=== PATIENT | female | born 1960 | race African-American/Black ===

== ENCOUNTER 2019-05-19 13:20 | Outpatient (CLI) | payer OTHER, SELFPAY ==
--- NOTE | ~2019-05-19 | US_ITS ---
EXAMINATION: US abdomen complete EXAM DATE: 05/19/2019 14:01 INDICATION: Epigastric pain. TECHNIQUE: Multiple grayscale and Doppler images of the complete abdomen were obtained (by a technolo gist who performed the scan) and subsequently reviewed. There is no prior study for comparison. FINDINGS: The abdominal aorta is normal in caliber. Visualized portion IVC is patent. The pancreatic head a nd body are normal in appearance. The pancreatic tail is not visualized. The liver has normal echogenicity and contour. There are no focal liver lesions identified. There is no evidence of intrahepatic biliary duct dilation. Portal venous flow was seen in the hepatopedal , normal direction and has normal Doppler waveform. Common bile duct measures 3 mm, which is normal. The gallbladder wall is normal in thickness, with ex pected amount of distention. No sonographic evidence of pericholecystic fluid. There is no cholelit hiases. Technologist performing exam reports patient did not demonstrate sonographic Romero's sign. Please note that this sign is less reliable in patients who have received pain medication. Right kidney: There is normal contour and echogenicity. It measures 9.0 x 5.8 x 4.7 centimeters. T here are no focal renal lesions identified. There is no hydronephrosis. Left kidney: There is normal contour and echogenicity. It measures 9.0 x 5.3 x 4.0 centimeters. Th ere are no focal renal lesions identified. There is no hydronephrosis. The spleen measures 8 centimeters and is morphologically normal. IMPRESSION: 1. Unremarkable complete abdominal ultrasound exam. Reviewed, dictated and finalized at location B.
== END 2019-05-19 13:21 | disposition home or self-care (01) ==
PROVIDERS: PCP Physician Assistant; Visit Provider Physician Assistant
DX: R10.13 Epigastric pain (principal)
CPT/HCPCS: 76700

== ENCOUNTER 2019-05-31 08:46 | Outpatient (CLI) | payer OTHER, SELFPAY ==
--- NOTE | ~2019-05-31 | NM_ITS ---
EXAMINATION: NM nia stress w perfusion DATE: 05/31/2019 13:04 INDICATION: Epigastric pain TECHNIQUE: Rest images were obtained following intravenous administration of 9 mCi Tc99m tetrofosmin (Myoview). The patient was infused intravenously with Lexiscan (Regadenoson). Then, 30.5 mCi Tc99m te trofosmin (Myoview) was administered intravenously, and stress images were obtained. Data was reconst ructed into short axis and horizontal and vertical long axis SPECT images. Gated SPECT images were al so obtained. COMPARISON: None. FINDINGS: There is no definite reversible or fixed perfusion abnormality to suggest ischemia or infar ction. There is normal left ventricular chamber size, wall motion and ejection fraction. Left ventr icular ejection fraction measures >70%. IMPRESSION: 1. Normal myocardial perfusion at rest and during stress. 2. Left ventricular ejection fraction measuring >70%. Reviewed, dictated and finalized at location A.
--- NOTE | 2019-05-31 09:29 | EST_ITS ---
Patient Info Name: Marilyn Cabrera Age: 59 years : 1960 Gender: Female Ht: 64 in Wt: 190 lbs BSA: 2.01 m2 Exam Date: 05/31/2019 9:51 AM Exam Location: [facility] [place] Stress Patient Status: Outpatient Admit Date: 05/31/2019 Staff Ordering Physician: Lester De Leon PA-C Attending Provider: ADAIR LEONARD DO Exercise Technologist: Nieves Mejia RDCS Exercise Physician: Adair Leonard DO Exam Type: CA stress nia w NM Study Info Indications R10.13 - EPIGASTRIC PAIN A regadenoson stress test was performed. Summary 1. 1. Negative lexiscan stress test for ischemic ST changes by ECG criteria. 2. 2. Baseline hypertension. 3. 3. Nuclear scan to follow and will be reported separately. Please correlate with it. 4. 4. Patient informed of the above results. Protocol: Lexiscan Stress ECG Details Stage: REST Duration (min): 5 min : 50 sec HR (bpm): 72 SBP (mmHg): 165 DBP (mmHg): 80 Stage: REST Duration (min): 19 min : 48 sec HR (bpm): 70 SBP (mmHg): 165 DBP (mmHg): 80 Stage: STAGE 1 Duration (min): 0 min : 59 sec HR (bpm): 99 SBP (mmHg): 144 DBP (mmHg): 93 Stage: RECOVERY Duration (min): 1 min : 0 sec HR (bpm): 94 SBP (mmHg): 144 DBP (mmHg): 93 Stage: RECOVERY Duration (min): 2 min : 0 sec HR (bpm): 88 SBP (mmHg): 142 DBP (mmHg): 91 Stage: RECOVERY Duration (min): 3 min : 0 sec HR (bpm): 82 SBP (mmHg): 129 DBP (mmHg): 84 Stage: RECOVERY Duration (min): 3 min : 28 sec HR (bpm): 86 SBP (mmHg): 129 DBP (mmHg): 84 Rest HR: 70 bpm Peak HR: 101 bpm Rest Sys BP: 165 mmHg Peak Sys BP: 144 mmHg Max Pred HR: 159 bpm % Max Pred HR: 64 % Target HR: 135 bpm Max RPP: 14,544 bpm*mmHg Termination Reason: Completed protocol Cardiac Symptoms: Stomach discomfort, headache Total Time: 1 min : 0 sec Rest [place] BP: 80 mmHg Peak [place] BP: 93 mmHg Total Dose: 0.4 mg Resting ECG Sinus rhythm. Stress ECG No ST changes. Arrhythmias None. Report Signatures
== END 2019-05-31 08:47 | disposition home or self-care (01) ==
PROVIDERS: PCP Physician Assistant; Visit Provider Physician Assistant
DX: R10.13 Epigastric pain (principal); I10 Essential (primary) hypertension
CPT/HCPCS: 78452; 93017; A9502; J2785

== ENCOUNTER 2019-10-19 09:34 | Outpatient (CLI) | payer OTHER, SELFPAY ==
[2019-10-19 10:00] LABS: Hematocrit 39.5 % (37.0-47.0); Hemoglobin 12.7 g/dL (12.0-15.0); Mean Corpuscular HGB Conc 32.2 g/dl (32-36); Mean Corpuscular Hemoglobin 28.2 pg (26-34); Mean Corpuscular Volume 87.8 fl (80-100); Mean Platelet Volume 10.1 fl (7.4-10.4); Platelet Count Result 309 k/mm3 (150-375); Red Cell Distribution Width 13.7 % (11.5-14.5); White Blood Count 5.9 K/mm3 (4.5-10.0)
[2019-10-19 10:17] LABS: Alanine Aminotransferase 22 U/L (4-35); Albumin Level 4.7 g/dL (3.5-5.1); Alkaline Phosphatase 86 U/L (38-126); Anion Gap 8 mmol/L (8-16); Aspartate Amino Transferase 23 U/L (14-36); Bilirubin,Total 0.6 mg/dL (0.2-1.3); Blood Urea Nitrogen 16 mg/dL (7-17); Calcium 9.4 mg/dL (8.4-10.2); Carbon Dioxide 30 mmol/L (22-30); Chloride 102 mmol/L (98-107); Cholesterol 211 mg/dL (0-200); Estimated Glomerular Filt Rate > 60; Glucose 109 mg/dL (65-105); HDL Direct 57 mg/dL; Potassium 3.7 mmol/L (3.4-5.0); Sodium 140 mmol/L (137-145); Triglycerides 107 mg/dL (<150)
[2019-10-19 10:29] LABS: LDL Cholesterol Direct 106 mg/dL
[2019-10-19 10:30] LABS: Hemoglobin A1C 6.2 % (<5.7)
[2019-10-19 10:38] LABS: Erythrocyte Sedimentation Rate 43 mm/hr (0-20)
[2019-10-19 10:47] LABS: Thyroid Stimulating Hormone 0.748 uIU/mL (0.465-4.680)
== END 2019-10-19 09:35 | disposition home or self-care (01) ==
LOC: ANHLAB 09:35
PROVIDERS: PCP Physician Assistant; Visit Provider Physician Assistant
DX: E11.9 Type 2 diabetes mellitus without complications (principal); M79.10 Myalgia, unspecified site; I10 Essential (primary) hypertension; R53.83 Other fatigue
CPT/HCPCS: 36415; 80053; 80061; 83036; 84443; 85027; 85652

== ENCOUNTER 2019-10-20 09:37 | Outpatient (CLI) | payer OTHER, SELFPAY | END 2019-10-20 09:38 | disposition home or self-care (01) | PROVIDERS: PCP Physician Assistant; Visit Provider Physician Assistant | DX: M79.10 Myalgia, unspecified site (principal) | CPT/HCPCS: 36415; 82085; 86038 ==

== ENCOUNTER 2019-11-08 13:33 | Outpatient (CLI) | payer OTHER, SELFPAY ==
--- NOTE | ~2019-11-08 | CT_ITS ---
EXAMINATION: CT chest wo con DATE: 11/08/2019 14:16 INDICATION: Solitary pulmonary nodule TECHNIQUE: Computed tomography (CT) of the chest was performed without intravenous contrast. Automate d exposure control and iterative reconstruction technique were employed. Exam dose: 127.04 mGy-cm to randy exam DLP. COMPARISON: None FINDINGS: Normal heart size. Prominent focal calcified plaque in the proximal left anterior descendin g coronary artery. No pericardial or pleural effusion. No hilar or mediastinal mass lesion or lymphadenopathy. No thoracic aortic aneurysm. 4 mm pleural based opacity at the posterior aspect of the right diaphragm. There is discoid atelectasis or scarring at the middle lobe, lingula and left lower lobe. Approximately 4.5 mm nonobstructing right renal calculus. Diverticulosis of the colon. No suspicious osteolytic or osteoblastic lesions. IMPRESSION: Discoid atelectasis or scarring in the middle lobe, lingula and left lower lobe 4 mm pleura-based opacity, right lower lobe Reviewed, dictated and finalized at Location A. Reviewed, dictated and finalized at location A. IMPRESSION: Discoid atelectasis or scarring in the middle lobe, lingula and le ft lower lobe 4 mm pleura-based opacity, right lower lobe
== END 2019-11-08 13:34 | disposition home or self-care (01) ==
PROVIDERS: PCP Physician Assistant; Visit Provider Physician Assistant
DX: R91.8 Other nonspecific abnormal finding of lung field (principal)
CPT/HCPCS: 71250

== ENCOUNTER 2019-11-16 10:02 | Emergency (ER) | payer OTHER, SELFPAY ==
--- NOTE | ~2019-11-16 | XR_ITS ---
XR hip LT min 3V w AP pelvis 11/16/2019 10:53 Indication: Left hip pain Procedure: AP view of the pelvis and 3 views left hip Comparison: No prior studies for comparison. Findings: Pelvic rings are intact. Sacral foramen are symmetric. Mild osteoarthritis of the hips. The re is bilateral lateral to the right hip joint. No acute fracture or traumatic malalignment. Impression: 1: No acute fracture. Reviewed, dictated and finalized at location A. Impression: 1: No acute fracture.
--- NOTE | ~2019-11-16 | CT_ITS ---
EXAMINATION: CT lumbar spine wo con DATE: 11/16/2019 10:48 INDICATION: Left-sided low back pain. TECHNIQUE: Computed tomography (CT) of the lumbar spine was performed without intravenous contrast. A utomated exposure control and iterative reconstruction technique were employed. Automated exposure co ntrol and iterative reconstruction technique were employed. The dose-length product was 917.42 mGy-cm . COMPARISON: Lumbar spine radiographs dated 05/22/2015 FINDINGS: Bilateral hypoplastic riblets at L1 with 4 more caudal nonrib-bearing lumbar segments L2-L5. Unchange d minimal lumbar dextrocurvature. Sagittal alignment is normal. Minimal likely physiologic anterior w edging at L1 and L2. No fracture. Mild disc height loss at L3-L4, minimal at L4-L5. Remaining disc he ights are normal with negligible vacuum phenomena the periphery of L5-S1. Mild bilateral sacroiliac o steoarthritis. 8 mm low-attenuation cyst at the lower pole of the right kidney. 3 mm low-density ston e versus parenchymal calcification at the lower pole of the right kidney. Extensive diverticulosis mo st prominent along the visualized portions of the descending and sigmoid colon without adjacent from 3 change to suggest diverticulitis. Fibroid uterus. The following disc levels are specifically discus sed: T12-L1: The disc does not extend beyond the endplate margin. There is mild bilateral facet joint oste oarthritis. There is no neural foraminal stenosis. There is no central canal stenosis. L1-L2: Disc is mildly bulging. There is mild left and mild to moderate right facet joint osteoarthrit is. There is no neural foraminal stenosis. There is no central canal stenosis. L2-L3: Disc is mildly bulging. There is mild right and minimal left facet joint osteoarthritis. There is mild right and minimal left neural foraminal stenosis. There is mild central canal stenosis. L3-L4: Disc is bulging. There is mild right and mild to moderate left facet joint osteoarthritis. The re is mild bilateral neural foraminal stenosis. There is mild central canal stenosis. L4-L5: Disc is bulging. There is mild right and moderate left facet joint osteoarthritis. There is mo derate left and mild to moderate right neural foraminal stenosis. There is mild central canal stenosi s. L5-S1: Disc is mildly bulging. There is minimal bilateral facet joint osteoarthritis. There is mild b ilateral neural foraminal stenosis. There is no central canal stenosis. IMPRESSION: 1. Mild lumbar spondylosis. No acute osseous abnormality. Reviewed, dictated and finalized at location A.
[2019-11-16 10:10] VITALS: BP 174/99; PULSE 55; RESP 18; TEMP 36.5; O2SAT 100
--- NOTE | 2019-11-16 10:27 | ED.BACK ---
HPI - Back Pain/Injury General Chief Complaint: Back Pain/Injury <Sommer Carranza PA-C - Last Filed: 11/16/19 13:30> Stated Complaint: leg and hip pain <ROSA Vee Last Filed: 11/16/19 13:30> Time Seen by Provider: 11/16/19 10:14 <Sommer Carranza PA-C - Last Filed: 11/16/19 13:30> Source: patient <ROSA Vee Last Filed: 11/16/19 13:30> Mode of arrival: ambulatory <ROSA Vee Last Filed: 11/16/19 13:30> Limitations: no limitations <ROSA Vee Last Filed: 11/16/19 13:30> History of Present Illness HPI Narrative: This is a 59-year-old female that presents the emergency department for left-sided low back pain since yesterday. No known injury or trauma. Reports pain is the left side of the low back and radiates down the left thigh. Pain is worse with movement and relieved with rest. Denies fever, abdominal pain, vomiting, dysuria, saddle anesthesia, or bowel/bladder incontinence. <ROSA Vee Last Filed: 11/16/19 13:30> Related Data Home Medications: Home Medications Medication Instructions Recorded Confirmed cholecalciferol (vitamin D3) 50 2,000 unit PO DAILY 01/03/19 11/07/19 mcg (2,000 unit) tablet amlodipine 5 mg tablet 10 mg PO DAILY tablet 01/07/19 11/07/19 omeprazole 40 mg capsule,delayed 40 mg PO DAILY 11/02/19 11/07/19 release <ROSA Vee Last Filed: 11/16/19 13:30> Allergies/Adverse Reactions: Allergies Allergy/AdvReac Type Severity Reaction Status Date / Time Penicillins Allergy Unknown HEADACHES Verified 11/16/19 10:18 <ROSA Vee Last Filed: 11/16/19 13:30> Review of Systems Review of Systems: Narrative: CONSTITUTIONAL: Denies fever GASTROINTESTINAL: Denies abdominal pain, nausea, vomiting GENITOURINARY: Denies dysuria or hematuria. SKIN: Denies rash MUSCULOSKELETAL: Reports back pain, joint pain, and myalgia. NEUROLOGIC: Denies numbness, or weakness. <Sommer Carranza PA-C - Last Filed: 11/16/19 13:30> All systems reviewed & are unremarkable except as noted in HPI and below <Sommer Carranza PA-C - Last Filed: 11/16/19 13:30> PMFSH Social History Social History: Social History Smoking status: Former smoker Tobacco type: cigarettes Second hand tobacco smoke exposure: No Smoking end date: 03/09/89 Alcohol intake: never Substance use: never <Sommer Carranza PA-C - Last Filed: 11/16/19 13:30> Exam Narrative: Exam Narrative: GENERAL: Well-appearing, well-nourished, and in no acute distress. HEAD: Normocephalic, atraumatic. EYES: EOMI. CHEST: Clear to auscultation. No respiratory distress. No wheezes rales or rhonchi HEART: Regular rate and rhythm. No murmur heard. Normal peripheral pulses. BACK: No midline spinal tenderness EXTREMITIES: Normal range of motion. No edema. Strength equal in bilateral lower extremities (5/5) SKIN: Warm, dry, no rash. NEURO: No focal deficits. Alert and oriented x3. Normal gait PSYCH: Normal mood and affect <Sommer Carranza PA-C - Last Filed: 11/16/19 13:30> Course Vital Signs Vital signs: Vital Signs Temperature 97.7 F 11/16/19 10:10 Pulse Rate 55 L 11/16/19 10:10 Respiratory Rate 18 11/16/19 10:10 Blood Pressure 174/99 H 11/16/19 10:10 Pulse Oximetry 100 11/16/19 10:10 Temperature 97.7 F 11/16/19 10:10 Pulse Rate 55 L 11/16/19 13:25 Respiratory Rate 20 11/16/19 13:25 Blood Pressure 152/74 H 11/16/19 13:25 Pulse Oximetry 100 11/16/19 13:25 <Sommer Carranza PA-C - Last Filed: 11/16/19 13:30> Vital Signs Temperature 97.7 F 11/16/19 10:10 Pulse Rate 55 L 11/16/19 10:10 Respiratory Rate 18 11/16/19 10:10 Blood Pressure 174/99 H 11/16/19 10:10 Pulse Oximetry 100 11/16/19 10:10 Temperature 97.7 F 11/16/19 10:10 Pulse Rate 55 L 11/16/19 13:25 Respiratory
--- NOTE | 2019-11-16 10:36 | PC.NURSE ---
Patient to radiology at this time.
--- NOTE | 2019-11-16 11:00 | PC.NURSE ---
Patient back from radiology and she was updated on plan of care at this time.
--- NOTE | 2019-11-16 11:15 | PC.NURSE ---
Patient introduced to oncoming RN and bedside report was provided at same time.
[2019-11-16 11:23] VITALS: BP 171/86; PULSE 51; RESP 20; O2SAT 100
[2019-11-16] MEDS: ACETAMINOPHEN 500 MG TABLET 1000 MG PO (11:25)
[2019-11-16] MEDS: KETOROLAC (*BKC) 60 MG/2 ML VIAL IM (12:49)
[2019-11-16 13:25] VITALS: BP 152/74; PULSE 55; RESP 20; O2SAT 100
== END 2019-11-16 14:30 | disposition home or self-care (01) ==
PROVIDERS: Emergency Provider General Practice; PCP Physician Assistant
DX: M54.42 Lumbago with sciatica, left side (principal); Z87.891 Personal history of nicotine dependence
CPT/HCPCS: 72131; 73502; 96372; 99284; A9270; J1885; J3360

== ENCOUNTER 2020-04-12 08:50 | Emergency (ER) | payer OTHER, SELFPAY ==
[2020-04-12] VITALS (11 sets, daily range): BP systolic 141–171; BP diastolic 75–97; PULSE 57–76; RESP 16–19; TEMP 36.5; O2SAT 99–100
--- NOTE | ~2020-04-12 | CT_ITS ---
EXAMINATION: CTA brain carotid EXAM DATE: 04/12/2020 12:06 INDICATION: Dizziness. Headache. Elevated blood pressure. Lightheadedness. TECHNIQUE: Noncontrast head CT. Spiral CTA of the carotid arteries was performed with intravenous i njection 100 cc of Omnipaque 350. Axial, coronal, sagittal reformatted images reviewed. Additional r eformatted images created on dedicated 3-D workstation. NASCET comparable standard used to assess th e degree of arterial stenosis. Spiral CT angiogram cerebral arteries performed with the same intrave nous injection of contrast. Source images of the brain CTA transferred to dedicated workstation for 3 -D rotational image creation. Coronal, sagittal maximum intensity pixel images also reviewed. The d ose-length product (DLP) for this examination was 1595.76 mGy-cm. The exposure was tailored accordi ng to patient size, and iterative reconstruction (ASIR) was used as additional dose reduction techniq ue. Correlation is made to brain MRI 10/23/2014. FINDINGS: There is mild bilateral carotid bulb arterial sclerosis with 0% stenosis bilaterally. The v ertebral arteries are codominant. There are bilateral posterior communicating artery dominant posteri or cerebral arteries. There is no carotid or vertebral basilar arterial dissection or fibromuscular d ysplasia. There are no cerebral artery aneurysms. There is symmetric cerebral artery arborization. Th e sagittal, transverse and sigmoid sinuses enhance normally, no venous sinus thrombosis. Internal cer ebral veins also enhance normally. There is no acute intraparenchymal hemorrhage. No evidence of intraparenchymal brain mass lesion. N o evidence of acute infarction. There is no mass effect or midline shift. There is no obstructive hyd rocephalus suspected. There are no extra-axial collections. There are no calvarial acute fractures. Mild cervical spondylosis. Lung apices are clear. IMPRESSION: 1. No cervical arterial dissection or cerebral artery aneurysm. 2. Bilateral carotid bulb 0% stenosis. Reviewed, dictated and finalized at location B. MIXER
--- NOTE | ~2020-04-12 | XR_ITS ---
EXAMINATION: XR chest 1V portable EXAM DATE: 04/12/2020 09:39 INDICATION: Chest pain. TECHNIQUE: Portable AP frontal chest x-ray was obtained. Comparison is made to prior examination from 05/21/2013. FINDINGS: The lungs are clear. There are no pleural effusions. Cardiac silhouette is prominent but magnified on this AP technique. There is no pneumothorax suspected. The bones and soft tissues ar e unremarkable. IMPRESSION: No acute cardiopulmonary findings. Reviewed, dictated and finalized at location B. L MUSIC INSTRUCTOR
--- NOTE | 2020-04-12 09:05 | ECG_ITS ---
Measurements Intervals [place] Rate: 68 P: 37 [place]: 166 QRS: 14 QRSD: 94 T: 24 QT: 381 QTc: 407 Interpretive Statements SINUS RHYTHM VOLTAGE CRITERIA FOR LVH BORDERLINE ECG Electronically Signed On 04-12-2020 12:50:00 STRIKE OFF MACHINE OPERATOR by Adair Bourgeois D.O.
[2020-04-12 09:20] LABS: Basophils Absolute Auto 0.1 K/mm3 (0.0-0.1); Basophils Percent Auto 0.6 % (0.2-1.2); Eosinophils Absolute Auto 0.1 K/mm3 (0-0.3); Eosinophils Percent Auto 1.4 % (0-4.4); Hematocrit 39.5 % (37.0-47.0); Hemoglobin 13.2 g/dL (12.0-15.0); Immature Granulocyte Absolute 0.02 K/mm3 (0.00-0.031); Immature Granulocyte Percent A 0.2 % (0-0.5); Lymphocytes Percent Auto 44.5 % (18.3-44.2); Mean Corpuscular HGB Conc 33.4 g/dl (32-36); Mean Corpuscular Hemoglobin 28.4 pg (26-34); Mean Corpuscular Volume 85.1 fl (80-100); Mean Platelet Volume 10.1 fl (7.4-10.4); Monocytes Absolute Auto 0.6 K/mm3 (0.1-0.6); Monocytes Percent Auto 6.8 % (2.6-8.5); Neutrophils Absolute Auto 4.4 K/mm3 (1.3-6.7); Neutrophils Percent Auto 46.5 % (45.5-73.1); Platelet Count Result 341 k/mm3 (150-375); Red Blood Count 4.64 M/mm3 (4.2-5.4); Red Cell Distribution Width 12.8 % (11.5-14.5); White Blood Count 9.4 K/mm3 (4.5-10.0)
[2020-04-12 09:34] LABS: Alanine Aminotransferase 22 U/L (4-35); Albumin Level 4.8 g/dL (3.5-5.1); Alkaline Phosphatase 87 U/L (38-126); Anion Gap 9 mmol/L (8-16); Aspartate Amino Transferase 24 U/L (14-36); Bilirubin,Total 0.9 mg/dL (0.2-1.3); Blood Urea Nitrogen 16 mg/dL (7-17); Calcium 10.1 mg/dL (8.4-10.2); Carbon Dioxide 31 mmol/L (22-30); Chloride 99 mmol/L (98-107); Estimated CRCL calculation 69 ml/min; Estimated Glomerular Filt Rate > 60; Glucose 99 mg/dL (65-105); Potassium 3.5 mmol/L (3.4-5.0); Sodium 139 mmol/L (137-145)
--- NOTE | 2020-04-12 09:35 | PC.NURSE ---
called Saritha werner, added on Trop I, BNP, Lipase, PT INR, PTT [id number]
[2020-04-12 09:45] LABS: Add Urine Microscopic? NO; Appearance Urine Clear (Clear); Bilirubin Urine Negative (Negative); Blood Urine Negative (Negative); Color Urine Colorless (Yellow); Glucose Urine UA Negative (Negative); Ketones Urine Negative (Negative); Leukocyte Esterase Ur Negative LEU/UL (Negative); Nitrate Urine Negative (Negative); Protein Urine Negative (Negative); Specific Grav Ur 1.009 (1.001-1.035); Urobilinogen Urine Negative mg/dL (<2.0)
[2020-04-12 09:53] LABS: Lipase 89 U/L (23-300)
[2020-04-12] MEDS: SODIUM CHLORIDE 0.9% IV 500 ML 999 ML IV CONT (09:55)
[2020-04-12 10:00] LABS: Amphetamine Screen Urine Negative (Negative); Barbiturate Screen Urine Negative (Negative); Benzodiazepines Screen Urine Negative (Negative); Cannabinoid Screen Urine Negative (Negative); Cocaine Screen Urine Negative (Negative); Methadone Screen Urine Negative (Negative); Opiate Screen Urine Negative (Negative); Phencyclidine Screen Urine Negative (Negative)
[2020-04-12 10:07] LABS: INR 0.9; Prothrombin Time 12.9 Seconds (11.1-14.7)
[2020-04-12 10:08] LABS: NT Pro B Type Natriuretic Pept 36 PG/ML (5-100); Troponin I < 0.012 ng/mL (0.000-0.034)
[2020-04-12 10:09] LABS: Partial Thromboplastin Time 27.1 SECONDS (22.3-36.8)
--- NOTE | 2020-04-12 11:08 | ED.GENADULT ---
HPI - General Adult General Chief complaint: Recheck/Abnormal Lab/Rx Stated complaint: High Blood Pressure, Dizzy Time Seen by Provider: 04/12/20 09:05 Source: patient Mode of arrival: ambulatory Limitations: no limitations History of Present Illness HPI narrative: Patient is 60-year-old female who presents to emergency department for evaluation of feeling lightheaded when she got up this morning patient has been having this off and on for the last 2 weeks this is the patient's third emergency department visit for this the last of which was Thursday at which point she was diagnosed with sinusitis given that she noted a history of chronic sinusitis was placed on steroids. A week prior patient had been seen by primary care for her episodes and had her blood pressure medicine increased. Patient notes despite these evaluations and changes in medication she has continued to have the symptoms. Patient notes today had a small twinge of chest discomfort lasting seconds. Patient on arrival denies any pain resting comfortably in the room does not appear to be uncomfortable. Patient notes that she took her medications this morning as instructed. Patient is followed by Dr. Rowell. Patient denies URI symptoms or sick contacts Related Data Home Medications Medication Instructions Recorded Confirmed cholecalciferol (vitamin D3) 50 2,000 unit PO DAILY 01/03/19 04/11/20 mcg (2,000 unit) tablet omeprazole 40 mg capsule,delayed 40 mg PO DAILY 11/02/19 03/27/20 release methylprednisolone 4 mg tablet 4 mg PO DAILY 04/09/20 04/11/20 Allergies Allergy/AdvReac Type Severity Reaction Status Date / Time Penicillins Allergy Unknown HEADACHES Verified 04/12/20 09:03 Review of Systems Review of Systems: All systems reviewed & are unremarkable except as noted in HPI and below [facility] Past Medical History Medical History (Updated 04/12/20 @ 13:11 by Rico Best PA-C) Hypertension Family History Family History Father Acute myocardial infarction, Onset Age: 56 Patient's father is Sibling Family history of coronary artery disease, Onset Age: 40 Patient's sister is Mother Patient's mother is Social History Social History Smoking status: Former smoker Tobacco type: cigarettes Second hand tobacco smoke exposure: No Smoking end date: 03/09/89 Alcohol intake: never Substance use: never Gender identity (if verbalized by the patient): Female Sexual Orientation (if Verbalized by the Patient): Straight or Heterosexual Exam Narrative: Exam Narrative: GENERAL: Well-appearing, well-nourished, and in no acute distress. HEAD: Normocephalic, atraumatic. EYES: PERRLA and EOMI. ENT: Nares clear, no rhinorrhea or epistaxis. Mucous membranes moist. Oropharynx without tonsillar hypertrophy exudate or other lesions. Bilateral TMs pearly tracy nonbulging NECK: Supple. No adenopathy or masses. No carotid bruits or JVD CHEST: Clear to auscultation. No respiratory distress. No wheezes rales or rhonchi HEART: Regular rate and rhythm. No murmur heard. Normal peripheral pulses. ABDOMEN: Soft, nontender, nondistended EXTREMITIES: Normal range of motion. No edema. SKIN: Warm, dry, no rash. NEURO: No focal deficits. Alert and oriented x3. Cranial nerves II through XII grossly intact. Normal speech and gait PSYCH: Normal mood and affect. Course Course Emergency Course: Patient evaluated in the emergency department for feeling lightheaded is resting comfortably in the room in no distress felt appropriate for outpatient reevaluation with primary care patient is afebrile nontoxic-appearing no distress no high risk changes in the blood work or imaging unsure as to the etiology of her symptoms are felt appropriate for continued evaluation on outpatient basis provided with dontae
[2020-04-12 12:58] LABS: Troponin I < 0.012 ng/mL (0.000-0.034)
== END 2020-04-12 13:28 | disposition home or self-care (01) ==
PROVIDERS: Emergency Medicine Emergency Medical Services; Emergency Provider Emergency Medicine; PCP Physician Assistant
DX: R42 Dizziness and giddiness (principal); I10 Essential (primary) hypertension; Z87.891 Personal history of nicotine dependence
CPT/HCPCS: 36415; 70496; 70498; 71045; 80053; 80307; 81003; 83690; 83880; 84484; 85025; 85610; 85730; 93005; 99284; J7040; Q9967

== ENCOUNTER 2020-04-20 12:45 | Emergency (ER) | payer OTHER, SELFPAY ==
--- NOTE | ~2020-04-20 | CT_ITS ---
EXAMINATION: CT brain wo con INDICATION: Headache and dizziness COMPARISON: 04/12/2020 TECHNIQUE: Standard unenhanced head CT. The dose-length product (DLP) was 605.33 mGy-cm. The mA was a djusted according to patient size. Iterative reconstruction technique was employed. FINDINGS: There is no intracranial hemorrhage, acute infarction, or abnormal mass lesion. The ventric les are normal. There is no abnormal mass effect or midline shift. The tracy-white matter differentiat ion is normal. The basal cisterns are patent. The orbits are normal. The paranasal sinuses, mastoids and calvarium are normal. IMPRESSION: 1. No acute intracranial abnormality. Reviewed, dictated and finalized at location A. OLE ASSEMBLER
--- NOTE | ~2020-04-20 | XR_ITS ---
EXAMINATION: XR chest 2V DATE: 04/20/2020 13:30 INDICATION: Chest pain. Dizziness. TECHNIQUE: Frontal and lateral views of the chest were obtained. COMPARISON: Chest single view 04/12/20, chest CT 11/08/2019 FINDINGS: There is mild atelectasis in lingula. No pleural effusion or pneumothorax. The heart size i s normal. IMPRESSION: 1. Mild atelectasis in lingula. Reviewed, dictated and finalized at location A. ER WORKER
[2020-04-20 12:47] VITALS: BP 144/82; PULSE 84; RESP 18; TEMP 36.2; O2SAT 100
--- NOTE | 2020-04-20 12:51 | ECG_ITS ---
Measurements Intervals [place] Rate: 75 P: 16 MT: 169 QRS: 15 QRSD: 75 T: 55 QT: 351 QTc: 394 Interpretive Statements SINUS RHYTHM VOLTAGE CRITERIA FOR LVH CONSIDER ANTERIOR INFARCT, AGE INDETERMINATE ABNORMAL ECG Electronically Signed On 04-20-2020 13:00:22 TRAINING ENGINEER by Adair Bourgeois D.O.
[2020-04-20 12:59] LABS: Basophils Percent Auto 0.7 % (0.2-1.2); Eosinophils Absolute Auto 0.1 K/mm3 (0-0.3); Eosinophils Percent Auto 1.3 % (0-4.4); Hematocrit 41.6 % (37.0-47.0); Immature Granulocyte Absolute 0.01 K/mm3 (0.00-0.031); Immature Granulocyte Percent A 0.2 % (0-0.5); Lymphocytes Absolute Auto 1.83 K/mm3 (0.9-3.2); Lymphocytes Percent Auto 34.2 % (18.3-44.2); Mean Corpuscular HGB Conc 33.7 g/dl (32-36); Mean Corpuscular Hemoglobin 29.1 pg (26-34); Mean Corpuscular Volume 86.5 fl (80-100); Mean Platelet Volume 9.7 fl (7.4-10.4); Monocytes Absolute Auto 0.3 K/mm3 (0.1-0.6); Monocytes Percent Auto 6.4 % (2.6-8.5); Neutrophils Absolute Auto 3.1 K/mm3 (1.3-6.7); Neutrophils Percent Auto 57.2 % (45.5-73.1); Platelet Count Result 277 k/mm3 (150-375); Red Blood Count 4.81 M/mm3 (4.2-5.4); Red Cell Distribution Width 12.4 % (11.5-14.5); White Blood Count 5.4 K/mm3 (4.5-10.0)
[2020-04-20 13:19] LABS: Alanine Aminotransferase 20 U/L (4-35); Albumin Level 4.5 g/dL (3.5-5.1); Alkaline Phosphatase 75 U/L (38-126); Anion Gap 7 mmol/L (8-16); Aspartate Amino Transferase 24 U/L (14-36); Bilirubin,Total 0.6 mg/dL (0.2-1.3); Blood Urea Nitrogen 14 mg/dL (7-17); Calcium 9.8 mg/dL (8.4-10.2); Carbon Dioxide 31 mmol/L (22-30); Chloride 98 mmol/L (98-107); Estimated CRCL calculation 68 ml/min; Estimated Glomerular Filt Rate > 60; Glucose 141 mg/dL (65-105); Potassium 3.3 mmol/L (3.4-5.0); Sodium 136 mmol/L (137-145)
--- NOTE | 2020-04-20 15:01 | ED.GENADULT ---
HPI - General Adult General Chief complaint: Recheck/Abnormal Lab/Rx Stated complaint: hypertension Time Seen by Provider: 04/20/20 13:35 Source: patient and family Mode of arrival: ambulatory Limitations: no limitations History of Present Illness HPI narrative: Patient is 60 years old -[place] female presents with headache, lightheadedness, chest pain, facial pain, neck pain, upper back pain, also right knee pain, right big toe pain, started 3 weeks ago. Patient was seen by family physician, cylinder press operator helper, ear nose and throat, pain the recommendation was to see a care administrative tech and neurologist. Patient reported that her blood pressure at home is high and usually gets better when she come to the emergency room. On arrival to the emergency room blood pressure was 144/82, when I went see the patient in the room was 133/84. Patient main complaint at this moment is headache. She denies any fever, chills, nausea, vomiting, shortness of breath, urinary symptoms, stress or anxiety, COVID-19 infection or exposure to anybody having COVID-19. Related Data Home Medications Medication Instructions Recorded Confirmed cholecalciferol (vitamin D3) 50 2,000 unit PO DAILY 01/03/19 04/11/20 mcg (2,000 unit) tablet Allergies Allergy/AdvReac Type Severity Reaction Status Date / Time Penicillins Allergy Unknown HEADACHES Verified 04/20/20 12:50 Review of Systems Review of Systems: Narrative: CONSTITUTIONAL: Denies fever, chills, or sweats. EYES: Denies visual changes, redness, or discharge. ENT: Denies rhinorrhea, congestion, sore throat, or otalgia. CARDIOVASCULAR: Denies chest pain, palpitations, or edema. RESPIRATORY: Denies cough or dyspnea. GASTROINTESTINAL: Denies abdominal pain, nausea, vomiting, or diarrhea. GENITOURINARY: Denies dysuria or hematuria. SKIN: Denies rash or itching. MUSCULOSKELETAL: Denies back pain, joint pain, or myalgia. NEUROLOGIC: Denies headache, numbness, or weakness. PSYCHIATRIC: Denies anxiety or depression. [facility] Past Medical History Medical History (Updated 04/20/20 @ 17:57 by Kerri Collazo MD) Hypertension Family History Family History Father Acute myocardial infarction, Onset Age: 56 Patient's father is Sibling Family history of coronary artery disease, Onset Age: 40 Patient's sister is Mother Patient's mother is Social History Social History Smoking status: Former smoker Tobacco type: cigarettes Second hand tobacco smoke exposure: No Smoking end date: 03/09/89 Alcohol intake: never Substance use: never Gender identity (if verbalized by the patient): Female Exam Narrative: Exam Narrative: General appearance: Well-developed, well-nourished Skin: Normal color Head: Normocephalic, nontraumatic Eyes: Clear conjunctiva ENT: Oropharynx normal, ears normal, nose normal Neck: Supple, nontender Chest and respiratory: Airway patent, no respiratory distress, no accessory muscle use Heart: Regular rate/rhythm Abdomen: Soft, nontender, no organomegaly, quiet bowel sounds Vascular: Normal peripheral pulses, normal capillary refill. Musculoskeletal: Normal range of motion, nontender back Neurologic: Alert and oriented ?3, CAP SEWER is normal as tested, no gross motor deficit Course Course Emergency Course: Stable Vital Signs Vital signs: Vital Signs Temperature 36.2 C L 04/20/20 12:47 Pulse Rate 84 04/20/20 12:47 Respiratory Rate 18 04/20/20 12:47 Blood Pressure 144/82 H 04/20/20 12:47 Pulse Oximetry 100 04/20/20 1
[2020-04-20] MEDS: ONDANSETRON INJ 4 MG/2 ML VIAL IV PUSH (15:11)
[2020-04-20] MEDS: MORPHINE SULFATE (*CRX) 4 MG/ML INJ IV PUSH (15:11)
[2020-04-20 15:16] LABS: Add Urine Microscopic? NO; Appearance Urine Clear (Clear); Bilirubin Urine Negative (Negative); Blood Urine Negative (Negative); Color Urine Straw (Yellow); Glucose Urine UA Negative (Negative); Ketones Urine Negative (Negative); Leukocyte Esterase Ur Negative LEU/UL (Negative); Nitrate Urine Negative (Negative); Protein Urine Negative (Negative); Specific Grav Ur 1.013 (1.001-1.035); Urobilinogen Urine Negative mg/dL (<2.0)
--- NOTE | 2020-04-20 15:16 | PC.NURSE ---
pt resting comfortably on stretcher with family at bedside. no further needs noted.
[2020-04-20 15:38] LABS: Erythrocyte Sedimentation Rate 96 mm/hr (0-20)
[2020-04-20 15:54] LABS: CRP 0.9 mg/dL (<1.0)
[2020-04-20 18:00] VITALS: BP 139/86; PULSE 80; RESP 20
== END 2020-04-20 18:00 | disposition home or self-care (01) ==
PROVIDERS: Emergency Provider Emergency Medicine; PCP Physician Assistant
DX: R51.9 Headache, unspecified (principal); M79.10 Myalgia, unspecified site; E87.6 Hypokalemia; I10 Essential (primary) hypertension; R91.8 Other nonspecific abnormal finding of lung field; R94.31 Abnormal electrocardiogram [ECG] [EKG]
CPT/HCPCS: 36415; 70450; 71046; 80053; 81003; 84443; 85025; 85652; 86140; 93005; 96374; 96375; 99284; J2270; J2405

== ENCOUNTER 2020-04-24 11:37 | Outpatient (CLI) | payer OTHER, SELFPAY ==
[2020-04-24 12:18] LABS: Cholesterol 237 mg/dL (0-200); HDL Direct 64 mg/dL; Magnesium 1.8 mg/dL (1.6-2.3); Triglycerides 126 mg/dL (<150)
[2020-04-24 12:22] LABS: Rheumatoid Factor < 8.6 IU/ML (<12)
[2020-04-24 12:26] LABS: Hemoglobin A1C 6.4 % (<5.7)
[2020-04-24 12:29] LABS: LDL Cholesterol Direct 110 mg/dL
[2020-04-24 12:50] LABS: Thyroid Stimulating Hormone 0.942 uIU/mL (0.465-4.680)
[2020-04-24 13:00] LABS: Vitamin D 25 Hydroxy 38.3 ng/mL
[2020-04-24 13:26] LABS: Erythrocyte Sedimentation Rate 40 mm/hr (0-20)
[2020-04-24 13:30] LABS: Folic Acid > 20.0 ng/mL (2.76->20)
[2020-04-24 14:08] LABS: Cortisol Random 6.46 ug/dL
== END 2020-04-24 11:38 | disposition home or self-care (01) ==
PROVIDERS: PCP Physician Assistant; Visit Provider Physician Assistant
DX: Z00.00 Encounter for general adult medical examination without abnormal findings (principal); E55.9 Vitamin D deficiency, unspecified; R51.9 Headache, unspecified; R10.0 Acute abdomen; R73.9 Hyperglycemia, unspecified; E78.5 Hyperlipidemia, unspecified; I10 Essential (primary) hypertension
CPT/HCPCS: 36415; 80061; 82306; 82533; 82607; 82746; 83036; 83735; 84443; 85652; 86038; 86430

== ENCOUNTER 2020-06-01 14:47 | Outpatient (CLI) | payer OTHER, SELFPAY ==
--- NOTE | ~2020-06-01 | MR_ITS ---
EXAMINATION: MR brain/brain stem wo/w con EXAM DATE: 06/01/2020 15:53 INDICATION: Compression of the brain. Headache, dizziness for couple of months. TECHNIQUE: Magnetic resonance imaging (MRI) of the brain/brain stem obtained without contrast. Sagit randy T1, axial diffusion, gradient echo (T2*), T1, T2, FLAIR sequences obtained. Patient was then inj ected with 17 cc intravenous Multihance contrast. Axial and coronal postcontrast T1 weighted sequence s obtained. Correlation is made to head CT 04/20/2020, brain MR 10/23/2014. Evangelista diffuse asymmetric. FINDINGS: There may be slightly low-lying cerebellar tonsils, not meeting criteria for Chiari I malfo rmation. There are no areas of restricted diffusion to suggest acute infarction. There is no acute h emorrhage seen on the T2*, a hemosiderin sensitive sequence. No intraparenchymal brain mass. The renu tricles are normal in size. There are no extra-axial collections. Flow voids are seen in the cerebr al arteries on the T2-weighted sequences consistent with their expected patency. The orbits are unre markable. Soft tissue is unremarkable. There are no areas of abnormal enhancement on the postcontr ast images. IMPRESSION: 1. Unremarkable brain MRI examination. Reviewed, dictated and finalized at location A.
[2020-06-01 15:20] LABS: Estimated Glomerular Filt Rate > 60
== END 2020-06-01 14:48 | disposition home or self-care (01) ==
LOC: ANHIMG 14:50
PROVIDERS: PCP Physician Assistant; Visit Provider Physician Assistant
DX: G93.5 Compression of brain (principal)
CPT/HCPCS: 70553; A9577

== ENCOUNTER 2020-06-14 14:27 | Outpatient (CLI) | payer OTHER, SELFPAY ==
--- NOTE | ~2020-06-14 | CT_ITS ---
EXAMINATION: CTA chest abdomen DATE: 06/14/2020 15:01 INDICATION: Hypertension, aortic aneurysm TECHNIQUE: Computed tomographic angiography (CTA) of the chest and abdomen was performed with 100 mL Omnipque-350 intravenous contrast. Maximum intensity projection 3D-reconstructions of the aorta and o ther arteries were constructed by the technologist on a separate workstation. The dose-length product (DLP) was 494.61 mGy-cm. Automated exposure control and iterative reconstruction technique were empl oyed. COMPARISON: 11/08/2019 FINDINGS: CHEST CTA: The thoracic aorta is unremarkable. There is no thoracic aortic aneurysm or dissection. There is mild calcified atherosclerosis at the origin of the left subclavian artery without hemodynamically signif icant stenosis. There is mild dependent atelectasis. The lungs are free of focal airspace opacities. A stable 4 mm nodule is noted in association with the major fissure on the left. No pathologically en larged thoracic lymph nodes are identified. The heart size is normal. There is mild thoracic spondylo sis. ABDOMEN CTA: The abdominal aorta is unremarkable. There is no aneurysm or dissection. The celiac axis, superior me senteric artery, and inferior mesenteric artery are normal at their origins. Single renal arteries ar e present bilaterally. The liver, spleen, pancreas, gallbladder, and adrenal glands are normal. Cysts of the kidneys measure up to 7 mm on the right. An area of cortical scarring is seen anteriorly in t he right mid kidney. There are no pathologically enlarged abdominal lymph nodes. There is no free int raperitoneal gas or evidence of bowel obstruction. IMPRESSION: 1. Unremarkable thoracic and abdominal aorta without evidence of aneurysm or dissection. Reviewed, dictated and finalized at location A. IMPRESSION: 1. Unremarkable thoracic and abdominal aorta without evidence of aneurysm or di ssection.
== END 2020-06-14 14:28 | disposition home or self-care (01) ==
LOC: ANHIMG 14:32
PROVIDERS: PCP Physician Assistant; Visit Provider Internal Medicine Cardiovascular Disease
DX: I10 Essential (primary) hypertension (principal); I71.9 Aortic aneurysm of unspecified site, without rupture
CPT/HCPCS: 71275; 74175; Q9967

== ENCOUNTER 2020-06-20 12:29 | Outpatient (CLI) | payer OTHER, SELFPAY ==
--- NOTE | ~2020-06-20 | US_ITS ---
EXAMINATION: US venous doppler LE DATE: 06/20/2020 13:04 INDICATION: Acute embolism and thrombosis of unspecified deep veins of unspecified lower extremity. TECHNIQUE: Grayscale ultrasound images without and with compression and Doppler ultrasound images of the bilateral lower extremity veins were obtained. COMPARISON: Ultrasound 09/25/2012 FINDINGS: The visualized portions of right common femoral vein, profunda (deep) femoral vein, femoral vein, pop liteal vein, peroneal veins, posterior tibial veins, and greater saphenous vein outflow are patent. The visualized portions of left common femoral vein, profunda femoral vein, femoral vein, popliteal v ein, peroneal veins, posterior tibial veins, and greater saphenous vein outflow are patent. IMPRESSION: 1. No deep venous thrombosis. Reviewed, dictated and finalized at location A.
== END 2020-06-20 12:30 | disposition home or self-care (01) ==
PROVIDERS: PCP Physician Assistant; Visit Provider Internal Medicine Cardiovascular Disease
DX: I82.409 Acute embolism and thrombosis of unspecified deep veins of unspecified lower extremity (principal)
CPT/HCPCS: 93970

== ENCOUNTER 2020-07-29 14:59 | Emergency (ER) | payer OTHER, SELFPAY ==
--- NOTE | ~2020-07-29 | XR_ITS ---
EXAMINATION: XR hip LT 2V w AP pelvis INDICATION: Left leg pain TECHNIQUE: AP view the pelvis and two views of the left hip are obtained. COMPARISON: 11/16/2019 FINDINGS: There is mild osteoarthritis of the hips. Bone alignment is normal. There is no fracture. T he soft tissues are unremarkable. IMPRESSION: 1. Mild osteoarthritis of the hips. Reviewed, dictated and finalized at location A.
[2020-07-29 15:15] VITALS: BP 172/83; PULSE 65; RESP 20; TEMP 36.8; O2SAT 100
--- NOTE | 2020-07-29 16:59 | ED.LOWEXIN ---
HPI - Extremity Injury (Lower) General Chief Complaint: Extremity Injury, Lower Stated Complaint: left thigh pain Time Seen by Provider: 07/29/20 15:33 Source: patient and RN notes reviewed Mode of arrival: ambulatory Limitations: no limitations History of Present Illness HPI Narrative: Patient is 61 years old -Thai female presents with pain at the anterior lateral left thigh recurrent from sleep in the middle of the night. Dull aching, no radiation, no skin discoloration, denies any trauma, fever, chills, nausea, vomiting, abdominal pain or back pain. Worse with certain movement, better laying still. Related Data Home Medications Medication Instructions Recorded Confirmed cholecalciferol (vitamin D3) 50 2,000 unit PO DAILY 01/03/19 07/25/20 mcg (2,000 unit) tablet Allergies Allergy/AdvReac Type Severity Reaction Status Date / Time Penicillins Allergy Unknown HEADACHES Verified 07/25/20 09:07 Review of Systems Review of Systems: Narrative: CONSTITUTIONAL: Denies fever, chills, or sweats. EYES: Denies visual changes, redness, or discharge. ENT: Denies rhinorrhea, congestion, sore throat, or otalgia. CARDIOVASCULAR: Denies chest pain, palpitations, or edema. RESPIRATORY: Denies cough or dyspnea. GASTROINTESTINAL: Denies abdominal pain, nausea, vomiting, or diarrhea. GENITOURINARY: Denies dysuria or hematuria. SKIN: Denies rash or itching. MUSCULOSKELETAL: Denies back pain, joint pain, or myalgia. NEUROLOGIC: Denies headache, numbness, or weakness. PSYCHIATRIC: Denies anxiety or depression. [facility] Past Medical History Medical History (Updated 07/29/20 @ 17:07 by Kerri Collazo MD) Hypertension Family History Family History Father Acute myocardial infarction, Onset Age: 56 Patient's father is Sibling Family history of coronary artery disease, Onset Age: 40 Patient's sister is Mother Patient's mother is Social History Social History Smoking packs per day: 0.5 Smoking cigarettes per day: 10.0 Years smoked: 8 Smoking pack-years: 4.00 Smoking status: Former smoker Tobacco type: cigarettes Second hand tobacco smoke exposure: No Smoking end date: 03/09/89 Alcohol intake: never Substance use: never Gender identity (if verbalized by the patient): Female Exam Narrative: Exam Narrative: General appearance: Well-developed, well-nourished Skin: Normal color Head: Normocephalic, nontraumatic Chest and respiratory: Airway patent, no respiratory distress, no accessory muscle use Heart: Regular rate/rhythm Abdomen: Soft, nontender, no organomegaly, quiet bowel sounds Vascular: Normal peripheral pulses, normal capillary refill. Musculoskeletal: Slight diffuse tenderness anterior lateral left thigh, no bruises, no swelling, no rash with slight limited range of motion of left hip because of left thigh pain ,the thigh is soft, no hardening or swelling. Neurologic: Alert and oriented ?3, MEASUREMENT SUPERINTENDENT is normal as tested, no gross motor deficit Course Course Emergency Course: Stable Vital Signs Vital signs: Vital Signs Temperature 36.8 C 07/29/20 15:15 Pulse Rate 65 07/29/20 15:15 Respiratory Rate 20 07/29/20 15:15 Blood Pressure 172/83 H 07/29/20 15:15 Pulse Oximetry 100 07/29/20 15:15 Temperature 36.8 C 07/29/20 15:15 Pulse Rate 65 07/29/20 15:15 Respiratory Rate 20 07/29/20 15:15 Blood Pressure 172/83 H 07/29/20 15:15 Pulse Oximetry 100 07/29/20 15:15 MDM - Extremity Injury (Lower) MDM Narrative Medic
[2020-07-29 17:35] LABS: Basophils Percent Auto 0.6 % (0.2-1.2); Eosinophils Absolute Auto 0.3 K/mm3 (0-0.3); Eosinophils Percent Auto 5.6 % (0-4.4); Hematocrit 37.1 % (37.0-47.0); Hemoglobin 11.9 g/dL (12.0-15.0); Immature Granulocyte Absolute 0.01 K/mm3 (0.00-0.031); Immature Granulocyte Percent A 0.2 % (0-0.5); Lymphocytes Absolute Auto 2.28 K/mm3 (0.9-3.2); Lymphocytes Percent Auto 42.4 % (18.3-44.2); Mean Corpuscular HGB Conc 32.1 g/dl (32-36); Mean Corpuscular Hemoglobin 27.9 pg (26-34); Mean Corpuscular Volume 86.9 fl (80-100); Mean Platelet Volume 9.8 fl (7.4-10.4); Monocytes Absolute Auto 0.4 K/mm3 (0.1-0.6); Monocytes Percent Auto 7.1 % (2.6-8.5); Neutrophils Absolute Auto 2.4 K/mm3 (1.3-6.7); Neutrophils Percent Auto 44.1 % (45.5-73.1); Platelet Count Result 251 k/mm3 (150-375); Red Blood Count 4.27 M/mm3 (4.2-5.4); Red Cell Distribution Width 13.4 % (11.5-14.5); White Blood Count 5.4 K/mm3 (4.5-10.0)
[2020-07-29 17:45] LABS: Alanine Aminotransferase 23 U/L (4-35); Albumin Level 4.5 g/dL (3.5-5.1); Alkaline Phosphatase 82 U/L (38-126); Anion Gap 4 mmol/L (8-16); Aspartate Amino Transferase 28 U/L (14-36); Bilirubin,Total 0.9 mg/dL (0.2-1.3); Blood Urea Nitrogen 9 mg/dL (7-17); Calcium 9.7 mg/dL (8.4-10.2); Carbon Dioxide 27 mmol/L (22-30); Chloride 105 mmol/L (98-107); Estimated CRCL calculation 68 ml/min; Estimated Glomerular Filt Rate > 60; Glucose 88 mg/dL (65-105); Potassium 3.9 mmol/L (3.4-5.0); Sodium 136 mmol/L (137-145)
[2020-07-29 18:10] VITALS: BP 159/88; PULSE 84; RESP 16; O2SAT 97
== END 2020-07-29 18:30 | disposition home or self-care (01) ==
PROVIDERS: Emergency Provider Emergency Medicine; PCP Physician Assistant
DX: M79.652 Pain in left thigh (principal); I10 Essential (primary) hypertension; Z87.891 Personal history of nicotine dependence; M16.0 Bilateral primary osteoarthritis of hip
CPT/HCPCS: 36415; 73502; 80053; 85025; 99284

== ENCOUNTER 2020-08-08 09:46 | Outpatient (CLI) | payer OTHER, SELFPAY ==
[2020-08-12 11:50] LABS: Metanephrine, Free 43 pg/mL (<=57); Normetanephrine, Free 181 pg/mL (<=148); Total, Free (MN + NMN) 224 pg/mL (<=205)
== END 2020-08-08 09:47 | disposition home or self-care (01) ==
PROVIDERS: PCP Physician Assistant; Visit Provider Physician Assistant
DX: I10 Essential (primary) hypertension (principal)
CPT/HCPCS: 36415; 83835

== ENCOUNTER 2020-08-15 15:10 | Emergency (ER) | payer OTHER, SELFPAY ==
[2020-08-15] VITALS (11 sets, daily range): BP systolic 152–185; BP diastolic 75–99; PULSE 55–74; RESP 12–18; TEMP 36.2; O2SAT 98–100
--- NOTE | ~2020-08-15 | XR_ITS ---
EXAMINATION: XR chest 2V 08/15/2020 15:45 INDICATION: Shortness of breath. Chest pain. Palpitations. PROCEDURE: PA and lateral views of the chest COMPARISON: Comparison to multiple prior studies sequentially, with oldest reviewed study dated 02/07. FINDINGS: The lungs are clear. The cardiomediastinal silhouette is within normal limits. There are no pleural effusions. There is no pneumothorax suspected. IMPRESSION: 1: NO ACUTE CARDIOPULMONARY DISEASE. Reviewed, dictated and finalized at location A.
--- NOTE | 2020-08-15 15:12 | ECG_ITS ---
Measurements Intervals [place] Rate: 62 P: 31 [place]: 172 QRS: 6 QRSD: 90 T: 33 QT: 394 QTc: 403 Interpretive Statements SINUS RHYTHM ATRIAL PREMATURE COMPLEX VOLTAGE CRITERIA FOR LVH BORDERLINE R WAVE PROGRESSION, ANTERIOR LEADS BORDERLINE ECG Electronically Signed On 08-15-2020 15:36:18 CDT by Adair Bourgeois D.O.
[2020-08-15 15:49] LABS: Basophils Percent Auto 0.5 % (0.2-1.2); Eosinophils Absolute Auto 0.2 K/mm3 (0-0.3); Eosinophils Percent Auto 3.5 % (0-4.4); Hematocrit 37.4 % (37.0-47.0); Hemoglobin 12.1 g/dL (12.0-15.0); Immature Granulocyte Absolute 0.02 K/mm3 (0.00-0.031); Immature Granulocyte Percent A 0.3 % (0-0.5); Lymphocytes Absolute Auto 1.94 K/mm3 (0.9-3.2); Lymphocytes Percent Auto 32.8 % (18.3-44.2); Mean Corpuscular HGB Conc 32.4 g/dl (32-36); Mean Corpuscular Hemoglobin 28.1 pg (26-34); Mean Platelet Volume 9.9 fl (7.4-10.4); Monocytes Absolute Auto 0.3 K/mm3 (0.1-0.6); Monocytes Percent Auto 4.9 % (2.6-8.5); Neutrophils Absolute Auto 3.4 K/mm3 (1.3-6.7); Platelet Count Result 280 k/mm3 (150-375); Red Cell Distribution Width 13.7 % (11.5-14.5); White Blood Count 5.9 K/mm3 (4.5-10.0)
[2020-08-15 16:01] LABS: Anion Gap 9 mmol/L (8-16); Blood Urea Nitrogen 13 mg/dL (7-17); Carbon Dioxide 28 mmol/L (22-30); Chloride 105 mmol/L (98-107); Estimated CRCL calculation 68 ml/min; Estimated Glomerular Filt Rate > 60; Glucose 98 mg/dL (65-105); INR 0.9; Prothrombin Time 12.7 Seconds (11.1-14.7); Sodium 142 mmol/L (137-145)
[2020-08-15 16:02] LABS: Partial Thromboplastin Time 27.4 SECONDS (22.3-36.8)
[2020-08-15 16:13] LABS: Troponin I < 0.012 ng/mL (0.000-0.034)
[2020-08-15 19:22] LABS: Troponin I < 0.012 ng/mL (0.000-0.034)
[2020-08-15] MEDS: LABETALOL HCL 100 MG TABLET 200 MG PO (20:58)
--- NOTE | 2020-08-15 22:06 | ED.GENADULT ---
HPI - General Adult General Chief complaint: Arrhythmia/Palpitations <Rico Best PA-C - Last Filed: 08/15/20 22:12> Stated complaint: sent by PCP for fast heart rates <Rico Best PA-C - Last Filed: 08/15/20 22:12> Time Seen by Provider: 08/15/20 18:53 <Rico Best PA-C - Last Filed: 08/15/20 22:12> Source: patient, family, RN notes reviewed and old records reviewed <Rico Best PA-C - Last Filed: 08/15/20 22:12> Mode of arrival: EMS <Rico Best PA-C - Last Filed: 08/15/20 22:12> Limitations: no limitations <Rico Best PA-C - Last Filed: 08/15/20 22:12> History of Present Illness HPI narrative: Patient is a 60-year-old female who presents to emergency department for evaluation of elevated blood pressure noting that she did not feel well today patient has been evaluated by primary care for this and had recent increases in her blood pressure medication on Thursday scheduled to have MRI for adrenal mass and had abnormalities in her blood work concerning for pheochromocytoma. Patient on arrival to emergency department is in the room in no distress has been taking her medications as directed. Patient notes that she has not been feeling well since May. Patient is followed by Dr. Rowell. Patient denies other illness vomiting diarrhea or concerns and presents with her <Rico Best PA-C - Last Filed: 08/15/20 22:12> Related Data Allergies/adverse reactions: Allergies Allergy/AdvReac Type Severity Reaction Status Date / Time Penicillins Allergy Unknown HEADACHES Verified 08/08/20 09:11 <Rico Best PA-C - Last Filed: 08/15/20 22:12> Review of Systems Review of Systems: All systems reviewed & are unremarkable except as noted in HPI and below <Rico Best PA-C - Last Filed: 08/15/20 22:12> [facility] Past Medical History Medical History: Medical History (Updated 08/15/20 @ 22:12 by Rico Best PA-C) Hypertension <Rico Best PA-C - Last Filed: 08/15/20 22:12> Family History Family History: Family History Father Acute myocardial infarction, Onset Age: 56 Patient's father is Sibling Family history of coronary artery disease, Onset Age: 40 Patient's sister is Mother Patient's mother is <Rico Best PA-C - Last Filed: 08/15/20 22:12> Social History Social History: Social History Smoking packs per day: 0.5 Smoking cigarettes per day: 10.0 Years smoked: 8 Smoking pack-years: 4.00 Smoking status: Former smoker Tobacco type: cigarettes Second hand tobacco smoke exposure: No Smoking end date: 03/09/89 Alcohol intake: never Substance use: never Gender identity (if verbalized by the patient): Female <Rico Best PA-C - Last Filed: 08/15/20 22:12> Exam Narrative: Exam Narrative: GENERAL: Well-appearing, well-nourished, and in no acute distress. HEAD: Normocephalic, atraumatic. EYES: PERRLA and EOMI. ENT: Nares clear, no rhinorrhea or epistaxis. Mucous membranes moist. CHEST: Clear to auscultation. No respiratory distress. No wheezes rales or rhonchi HEART: Regular rate and rhythm. No murmur heard. Normal peripheral pulses. ABDOMEN: Soft, nontender, nondistended EXTREMITIES: Normal range of motion. No edema. SKIN: Warm, dry, no rash. NEURO: No focal deficits. Alert and oriented x3. PSYCH: Normal mood and affect. <Rico Best PA-C - Last Filed: 08/15/20 22:12> Course Course Emergency Course: Patient evaluated in the emergency department was given her medication will follow with her primary care doctor and is aware of discussion and recommendations by primary care. Patient is afebrile nontoxic-appearing in no distress patient agrees with the treatment plan an
== END 2020-08-15 22:20 | disposition home or self-care (01) ==
PROVIDERS: Emergency Provider Emergency Medicine; PCP Physician Assistant
DX: I10 Essential (primary) hypertension (principal); Z87.891 Personal history of nicotine dependence; I49.1 Atrial premature depolarization; R94.31 Abnormal electrocardiogram [ECG] [EKG]
CPT/HCPCS: 36415; 71046; 80048; 84484; 85025; 85610; 85730; 93005; 99284; A9270

== ENCOUNTER 2020-08-21 09:59 | Outpatient (CLI) | payer OTHER, SELFPAY ==
--- NOTE | ~2020-08-21 | MR_ITS ---
EXAMINATION: MR abdomen wo/w con DATE: 08/21/2020 11:08 INDICATION: Abnormal findings of blood chemistry. Blood pressure indices and back pain. TECHNIQUE: Magnetic resonance imaging (MRI) of the abdomen was performed without and with 17 mL Multi aruna intravenous contrast. Sequences included coronal and axial T2-weighted SS-FSE, axial FS 2D-FIES TA, coronal and axial dual-echo T1-weighted FSPGR, axial T1-weighted LAVA, and axial STIR FSE. Postco ntrast axial T1-weighted LAVA images were obtained in a time course. Postcontrast coronal T1-weighted LAVA images were obtained. COMPARISON: CTA chest and abdomen dated 06/14/2020 FINDINGS: Borderline heart size. No pericardial or pleural effusion. Liver, gallbladder, spleen, pancreas and b ilateral adrenal glands are normal. There are bilateral T2 hyperintense nonenhancing renal cysts the largest on the right measuring 1.5 cm. Fibroid uterus with 5.9 cm and 3.9 cm fibroids seen on the cor onal images. The anterior fundus of the uterus exerts mass effect upon the underlying normal-appearin g bladder. No pathologically enlarged abdominal or pelvic lymphadenopathy. There is prominent colonic diverticulosis with a sigmoid predominance. There is no adjacent inflammatory change to suggest div erticulitis. No bowel obstruction. Normal bone marrow signal throughout. IMPRESSION: 1. Normal bilateral adrenal glands. 2. Diverticulosis. 3. Fibroid uterus. Reviewed, dictated and finalized at location A.
== END 2020-08-21 10:00 | disposition home or self-care (01) ==
PROVIDERS: PCP Physician Assistant; Visit Provider Physician Assistant
DX: R79.89 Other specified abnormal findings of blood chemistry (principal); K57.30 Diverticulosis of large intestine without perforation or abscess without bleeding; D25.9 Leiomyoma of uterus, unspecified
CPT/HCPCS: 74183; A9577

== ENCOUNTER 2020-09-12 14:32 | Outpatient (CLI) | payer OTHER, SELFPAY ==
--- NOTE | 2020-09-12 14:47 | ECHO_ITS ---
Patient Info Name: Marilyn Cabrera Age: 60 years : 1960 Gender: Female Ht: 64 in Wt: 182 lbs BSA: 1.96 m2 HR: 67 bpm BP: 146 / 92 mmHg Technical Quality: Good Exam Date: 09/12/2020 3:02 PM Exam Location: [facility] Pulmonary Patient Status: Outpatient Admit Date: 09/12/2020 Staff Ordering Physician: Adair Bourgeois DO Diesel Electrician: Addison Romero RDCS, RT Attending Provider: Adair Bourgeois DO Referring Physician: Bk ESPINOZA; Exam Type: CA echo doppler color flow Study Info Indications I10 - Essential (primary) hypertension Complete two-dimensional, color flow and Doppler transthoracic echocardiogram is performed. Strain analysis performed. Summary 1. Complete two-dimensional, color flow and Doppler transthoracic echocardiogram is performed. 2. Left ventricular chamber dimension is normal. 3. Left ventricular systolic function is normal, estimated at 60-65%. 4. There is mildly increased left ventricular wall thickness. 5. The left ventricular diastolic function is grade I diastolic dysfunction. 6. E/e' 9 is minimally elevated. 7. Global longitudinal strain is normal at -19.5%. 8. No pulmonary hypertension, estimated pulmonary arterial systolic pressure is 33 mmHg. 9. There is trivial pericardial effusion. Left Ventricle E/e' 9 is minimally elevated. Global longitudinal strain is normal at -19.5%. Left ventricular chamber dimension is normal. Left ventricular systolic function is normal, estimated at 60-65%. There is mildly increased left ventricular wall thickness. The left ventricular diastolic function is grade I diastolic dysfunction. Right Ventricle Right ventricular systolic function is normal. and with normal TAPSE 3.3 cm. Right ventricular chamber dimension is normal. Left Atria Left atrial chamber dimension is normal. Right Atria Right atrial chamber dimension is normal. Aortic Valve The aortic valve is trileaflet. There is no aortic valve stenosis. There is no aortic valve regurgitation. Pulmonic Valve There is no pulmonic regurgitation. Mitral Valve There is no mitral valve stenosis. There is no mitral valve regurgitation. Tricuspid Valve There is no tricuspid valve regurgitation. No pulmonary hypertension, estimated pulmonary arterial systolic pressure is 33 mmHg. Pericardium/Pleural There is trivial pericardial effusion. Inferior Vena Cava Normal inferior vena cava with >50% collapse upon inspiration consistent with normal right atrial pressure, 5 mmHg. Aorta The aortic root size at the sinus of Valsalva is normal. Left Ventricular Outflow Tract Name Value Normal LVOT 2D LVOT Diameter 2.0 cm LVOT Doppler LVOT Peak Gradient 7 mmHg LVOT Mean Gradient 3 mmHg LVOT VTI 24 cm LVOT VTI/AV VTI Ratio 0.7 LVOT Stroke Volume 73 ml LVOT CO 5.0 l/min LVOT CI 2.5 l/min/m2 Mitral Valve
== END 2020-09-12 14:33 | disposition home or self-care (01) ==
LOC: ANHCARD 14:34
PROVIDERS: PCP Physician Assistant; Visit Provider Internal Medicine Cardiovascular Disease
DX: I10 Essential (primary) hypertension (principal)
CPT/HCPCS: 93306

== ENCOUNTER 2020-10-01 12:00 | Outpatient (CLI) | payer OTHER, SELFPAY ==
[2020-10-01 12:33] LABS: Cholesterol 165 mg/dL (0-200); HDL Direct 50 mg/dL; Triglycerides 111 mg/dL (<150)
[2020-10-01 12:43] LABS: LDL Cholesterol Direct 67 mg/dL
== END 2020-10-01 12:01 | disposition home or self-care (01) ==
LOC: ANHLAB 12:03
PROVIDERS: PCP Physician Assistant; Visit Provider Internal Medicine Cardiovascular Disease
DX: E78.5 Hyperlipidemia, unspecified (principal)
CPT/HCPCS: 36415; 80061

== ENCOUNTER 2020-10-04 11:22 | Outpatient (CLI) | payer OTHER, SELFPAY ==
--- NOTE | ~2020-10-04 | XR_ITS ---
EXAMINATION: XR chest 2V EXAM DATE: 10/04/2020 11:45 INDICATION: J18.9 - Pneumonia, unspecified organism . TECHNIQUE: Frontal and lateral projections of the chest obtained and reviewed. Comparison is made to prior examination from 08/15/2020. FINDINGS: The lungs are clear. There are no pleural effusions. The cardiomediastinal silhouette is within normal limits. There is no pneumothorax suspected. The bones and soft tissues are unremarkab le. There is new cardiac monitoring device, otherwise no significant interval change. IMPRESSION: No acute cardiopulmonary findings. Reviewed, dictated and finalized at location B.
== END 2020-10-04 11:23 | disposition home or self-care (01) ==
LOC: ANHIMG 11:24
PROVIDERS: PCP Physician Assistant; Visit Provider Physician Assistant
DX: J18.9 Pneumonia, unspecified organism (principal)
CPT/HCPCS: 71046

== ENCOUNTER 2020-10-09 22:24 | Emergency (ER) | payer OTHER, SELFPAY ==
[2020-10-09 22:30] VITALS: BP 148/85; PULSE 70; RESP 18; TEMP 36.1; O2SAT 100
--- NOTE | 2020-10-10 00:57 | ECG_ITS ---
Measurements Intervals [place] Rate: 56 P: 12 [place]: 168 QRS: 8 QRSD: 97 T: 15 QT: 402 QTc: 389 Interpretive Statements SINUS BRADYCARDIA BORDERLINE ECG Electronically Signed On 10-10-2020 6:06:58 CDT by Adair Bourgeois D.O.
--- NOTE | 2020-10-10 00:58 | ED.GENADULT ---
HPI - General Adult General Chief complaint: Extremity Problem,Nontraumatic Stated complaint: heavy & cold legs Time Seen by Provider: 10/10/20 00:50 History of Present Illness HPI narrative: Patient is a 60-year-old female who presents the emergency department with chief complaint of cool lower extremities and numbness. Patient reports that she has been having palpitations for some time is actually wearing an event monitor right now and reports this evening she had an episode where her legs got cool and clammy and she had a can of a numbing tingling's feeling over her legs. Patient states that is subsequently resolved but still feels as though she is having palpitations. Patient states that there is no swelling in her legs she has no calf pain patient reports no recent thrombotic events. Related Data Home Medications Medication Instructions Recorded Confirmed pravastatin 20 mg tablet 20 mg PO DAILY 08/24/20 10/01/20 Allergies Allergy/AdvReac Type Severity Reaction Status Date / Time Penicillins Allergy Unknown HEADACHES Verified 10/09/20 22:34 Review of Systems Review of Systems: A 10 system review of systems was completed on the patient and is negative except for what is stated in the HPI. Nursing and ancillary documentation was reviewed. [facility] Past Medical History Medical History (Updated 10/10/20 @ 03:01 by rByant Gomez MD) Hypertension Family History Family History Father Acute myocardial infarction, Onset Age: 56 Patient's father is Sibling Family history of coronary artery disease, Onset Age: 40 Patient's sister is Mother Patient's mother is Social History Social History Smoking packs per day: 0.5 Smoking cigarettes per day: 10.0 Years smoked: 8 Smoking pack-years: 4.00 Smoking status: Former smoker Tobacco type: cigarettes Second hand tobacco smoke exposure: No Smoking end date: 03/09/89 Alcohol intake: never Substance use: never Gender identity (if verbalized by the patient): Female Exam Narrative: GENERAL: Well-appearing, well-nourished, and in no acute distress. HEAD: Normocephalic, atraumatic. EYES: PERRLA and EOMI. ENT: Nares clear, no rhinorrhea or epistaxis. Mucous membranes moist. NECK: Supple. CHEST: Clear to auscultation. No respiratory distress. HEART: Regular rate and rhythm. No murmur heard. Normal peripheral pulses. ABDOMEN: Soft, nontender, nondistended, normal active bowel sounds. EXTREMITIES: Normal range of motion. No edema. There are intact pulses in the dorsalis pedis of both the left and the right, they are equal they are bounding there is no calf tenderness there is no swelling of the lower extremities. SKIN: Warm, dry, no rash. NEURO: No focal deficits. Alert and oriented x3. PSYCH: Normal mood and affect. Course Vital Signs Vital signs: Vital Signs Temperature 36.1 C L 10/09/20 22:30 Pulse Rate 70 10/09/20 22:30 Respiratory Rate 18 10/09/20 22:30 Blood Pressure 148/85 H 10/09/20 22:30 Pulse Oximetry 100 10/09/20 22:30 Temperature 36.1 C L 10/09/20 22:30 Pulse Rate 70 10/09/20 22:30 Respiratory Rate 18 10/09/20 22:30 Blood Pressure 148/85 H 10/09/20 22:30 Pulse Oximetry 100 10/09/20 22:30 Medical Decision Making Vital Signs Vital Signs: Vital Signs Temperature 36.1 C L 10/09/20 22:30 Pulse Rate 70 10/09/20 22:30 Respiratory Rate 18 10/09/20 22:30 Blood Pressure 148/85 H 10/09/20 22:30 Pulse Oximetry 100 10/09/20 22:30 Temperature 36.1 C L 10/09/20 22:30 Pulse Rate 70 10/09/20 22:30 Respiratory Rate 18 10/09/20 22:30 Blood Pressure 148/85 H 10/09/20 22:30 Pulse Oximetry 100 10/09/20 22:30 Lab Data Result diagrams: 10/10/20 03:16 10/10/20 03:16
[2020-10-10 03:24] LABS: Basophils Percent Auto 0.6 % (0.2-1.2); Eosinophils Absolute Auto 0.2 K/mm3 (0-0.3); Eosinophils Percent Auto 2.9 % (0-4.4); Hematocrit 34.6 % (37.0-47.0); Hemoglobin 11.2 g/dL (12.0-15.0); Immature Granulocyte Absolute 0.02 K/mm3 (0.00-0.031); Immature Granulocyte Percent A 0.3 % (0-0.5); Lymphocytes Absolute Auto 2.89 K/mm3 (0.9-3.2); Lymphocytes Percent Auto 40.4 % (18.3-44.2); Mean Corpuscular HGB Conc 32.4 g/dl (32-36); Mean Corpuscular Hemoglobin 27.9 pg (26-34); Mean Corpuscular Volume 86.1 fl (80-100); Mean Platelet Volume 9.4 fl (7.4-10.4); Monocytes Absolute Auto 0.4 K/mm3 (0.1-0.6); Monocytes Percent Auto 6.2 % (2.6-8.5); Neutrophils Absolute Auto 3.6 K/mm3 (1.3-6.7); Neutrophils Percent Auto 49.6 % (45.5-73.1); Platelet Count Result 262 k/mm3 (150-375); Red Blood Count 4.02 M/mm3 (4.2-5.4); Red Cell Distribution Width 13.9 % (11.5-14.5); White Blood Count 7.2 K/mm3 (4.5-10.0)
[2020-10-10 03:40] LABS: Alanine Aminotransferase 12 U/L (4-35); Albumin Level 4.1 g/dL (3.5-5.1); Alkaline Phosphatase 72 U/L (38-126); Anion Gap 7 mmol/L (8-16); Aspartate Amino Transferase 18 U/L (14-36); Bilirubin,Total 0.7 mg/dL (0.2-1.3); Blood Urea Nitrogen 10 mg/dL (7-17); Calcium 9.6 mg/dL (8.4-10.2); Carbon Dioxide 26 mmol/L (22-30); Chloride 101 mmol/L (98-107); Estimated CRCL calculation 64 ml/min; Estimated Glomerular Filt Rate > 60; Glucose 103 mg/dL (65-110); Magnesium 1.9 mg/dL (1.6-2.3); Sodium 134 mmol/L (137-145)
== END 2020-10-10 04:31 | disposition home or self-care (01) ==
PROVIDERS: Emergency Provider Emergency Medicine; PCP Physician Assistant
DX: R00.2 Palpitations (principal); F17.210 Nicotine dependence, cigarettes, uncomplicated; I10 Essential (primary) hypertension
CPT/HCPCS: 36415; 80053; 83735; 85025; 93005; 99283

== ENCOUNTER 2021-11-16 08:29 | Outpatient (CLI) | payer OTHER, SELFPAY ==
[2021-11-16 09:02] LABS: Alanine Aminotransferase 24 U/L (6-35); Albumin Level 4.2 g/dL (3.5-5.1); Alkaline Phosphatase 76 U/L (38-126); Anion Gap 9 mmol/L (8-16); Aspartate Amino Transferase 30 U/L (14-36); Bilirubin,Total 1.2 mg/dL (0.2-1.3); Blood Urea Nitrogen 13 mg/dL (7-17); Carbon Dioxide 30 mmol/L (22-30); Chloride 100 mmol/L (98-107); Cholesterol 133 mg/dL (0-200); Estimated Glomerular Filt Rate > 60; Glucose 98 mg/dL (65-110); HDL Direct 61 mg/dL; Potassium 3.4 mmol/L (3.4-5.0); Sodium 139 mmol/L (137-145); Triglycerides 64 mg/dL (<150)
[2021-11-16 09:12] LABS: LDL Cholesterol Direct 40 mg/dL
== END 2021-11-16 08:30 | disposition home or self-care (01) ==
LOC: ANHLAB 08:31
PROVIDERS: Visit Provider Internal Medicine Cardiovascular Disease
DX: E78.5 Hyperlipidemia, unspecified (principal)
CPT/HCPCS: 36415; 80053; 80061

== ENCOUNTER 2022-10-20 11:03 | Outpatient (CLI) | payer OTHER, SELFPAY ==
[2022-10-20 12:02] LABS: Alanine Aminotransferase 32 U/L (6-35); Albumin Level 4.2 g/dL (3.5-5.1); Alkaline Phosphatase 76 U/L (38-126); Anion Gap 2 mmol/L (8-16); Aspartate Amino Transferase 29 U/L (14-36); Bilirubin,Total 1.2 mg/dL (0.2-1.3); Blood Urea Nitrogen 12 mg/dL (7-17); Carbon Dioxide 31 mmol/L (22-30); Chloride 102 mmol/L (98-107); Cholesterol 142 mg/dL (0-200); Estimated Glomerular Filt Rate > 60; Glucose 97 mg/dL (65-110); HDL Direct 62 mg/dL; Potassium 3.6 mmol/L (3.4-5.0); Sodium 135 mmol/L (137-145); Triglycerides 74 mg/dL (<150)
[2022-10-20 12:13] LABS: LDL Cholesterol Direct 53 mg/dL
== END 2022-10-20 11:04 | disposition home or self-care (01) ==
LOC: ANHLAB 11:07
PROVIDERS: Visit Provider Internal Medicine Cardiovascular Disease
DX: E78.5 Hyperlipidemia, unspecified (principal)
CPT/HCPCS: 36415; 80053; 80061

== ENCOUNTER 2022-11-03 12:09 | Outpatient (CLI) | payer OTHER, SELFPAY ==
[2022-11-03 12:49] LABS: Anion Gap 3 mmol/L (8-16); Blood Urea Nitrogen 14 mg/dL (7-17); Calcium 9.4 mg/dL (8.4-10.2); Carbon Dioxide 32 mmol/L (22-30); Chloride 101 mmol/L (98-107); Estimated Glomerular Filt Rate > 60; Glucose 96 mg/dL (65-110); Magnesium 1.9 mg/dL (1.6-2.3); Sodium 136 mmol/L (137-145)
== END 2022-11-03 12:10 | disposition home or self-care (01) ==
LOC: ANHLAB 12:11
PROVIDERS: Visit Provider Internal Medicine Cardiovascular Disease
DX: I10 Essential (primary) hypertension (principal)
CPT/HCPCS: 36415; 80048; 83735

== ENCOUNTER 2023-04-25 15:56 | Emergency (ER) | payer BC, SELFPAY ==
[2023-04-25 15:57] VITALS: BP 173/90; PULSE 56; RESP 18; TEMP 36.7; O2SAT 100
--- NOTE | 2023-04-25 15:57 | ECG_ITS ---
Measurements Intervals [place] Rate: 49 P: 42 [place]: 186 QRS: 12 QRSD: 88 T: 35 QT: 408 QTc: 371 Interpretive Statements SINUS BRADYCARDIA CONSIDER PREVIOUS ANTEROSEPTAL [place] ABNORMAL ECG COMPARED TO ECG 10/10/2020 01:14:05 SMALL PRECORDIAL R-WAVES ARE NOT SEEN PROBABLY RELATED TO SLIGHTLY DIFFERENT LEAD POSITION Electronically Signed On 04-25-2023 19:20:09 DISABILITY ADVOCATE by Avtar Gonzalez M.D.
[2023-04-25 19:10] VITALS: BP 170/82; PULSE 52; O2SAT 100
[2023-04-25 20:59] VITALS: BP 170/92; PULSE 51; RESP 14; O2SAT 98
[2023-04-25 21:05] VITALS: BP 176/85; PULSE 53; RESP 17; TEMP 36.6; O2SAT 100
--- NOTE | 2023-04-25 22:53 | ECG_ITS ---
Measurements Intervals [place] Rate: 50 P: 38 [place]: 211 QRS: 20 QRSD: 88 T: 34 QT: 426 QTc: 390 Interpretive Statements SINUS BRADYCARDIA WITH FIRST DEGREE AV BLOCK CONSIDER PREVIOUS ANTEROSEPTAL [place] ABNORMAL ECG COMPARED TO ECG 04/25/2023 16:04:25 SLIGHTLY LONGER [place] INTERVAL Electronically Signed On 04-26-2023 8:08:58 BREAKER LAYER by Avtar Gonzalez M.D.
[2023-04-25 23:09] VITALS: BP 145/92; PULSE 50; RESP 18; O2SAT 96
[2023-04-25 23:10] LABS: Basophils Percent Auto 0.5 % (0.2-1.2); Eosinophils Absolute Auto 0.2 K/mm3 (0-0.3); Eosinophils Percent Auto 3.6 % (0-4.4); Hematocrit 35.4 % (37.0-47.0); Hemoglobin 11.1 g/dL (12.0-15.0); Lymphocytes Absolute Auto 2.71 K/mm3 (0.9-3.2); Lymphocytes Percent Auto 44.9 % (18.3-44.2); Mean Corpuscular HGB Conc 31.4 g/dl (32-36); Mean Corpuscular Hemoglobin 28.5 pg (26-34); Mean Platelet Volume 10.1 fl (7.4-10.4); Monocytes Absolute Auto 0.3 K/mm3 (0.1-0.6); Monocytes Percent Auto 4.8 % (2.6-8.5); Neutrophils Absolute Auto 2.8 K/mm3 (1.3-6.7); Neutrophils Percent Auto 46.2 % (45.5-73.1); Platelet Count Result 244 k/mm3 (150-375); Red Blood Count 3.89 M/mm3 (4.2-5.4); Red Cell Distribution Width 13.2 % (11.5-14.5)
[2023-04-25 23:14] LABS: Appearance Urine Clear (Clear); Bacteria Urine Rare /hpf; Bilirubin Urine Negative (Negative); Blood Urine Negative (Negative); Color Urine Yellow (Yellow); Glucose Urine UA Negative (Negative); Ketones Urine Trace mg/dL (Negative); Leukocyte Esterase Ur Trace LEU/UL (Negative); Nitrate Urine Negative (Negative); Non Pathogenic Casts 0-2; Protein Urine Negative (Negative); RBC Urine 0-2 /hpf (0-2); Specific Grav Ur 1.016 (1.001-1.035); Squamous Epithelial Cell Urine None seen /hpf (Few); Urobilinogen Urine 0.2 mg/dL (<2.0); WBC Urine 0-5 /hpf; pH Urine 5.5 (5.0-9.0)
[2023-04-25 23:21] LABS: Add Urine Microscopic? YES
[2023-04-25 23:28] LABS: Alanine Aminotransferase 28 U/L (6-35); Albumin Level 4.3 g/dL (3.5-5.1); Alkaline Phosphatase 84 U/L (38-126); Anion Gap 7 mmol/L (8-16); Aspartate Amino Transferase 34 U/L (14-36); Bilirubin,Total 1.2 mg/dL (0.2-1.3); Blood Urea Nitrogen 14 mg/dL (7-17); Calcium 9.6 mg/dL (8.4-10.2); Carbon Dioxide 28 mmol/L (22-30); Chloride 105 mmol/L (98-107); Estimated CRCL calculation 64 ml/min; Estimated Glomerular Filt Rate > 60; Glucose 87 mg/dL (65-110); Potassium 3.7 mmol/L (3.4-5.0); Sodium 140 mmol/L (137-145)
[2023-04-25 23:40] LABS: Troponin I < 0.012 ng/mL (0.000-0.034)
[2023-04-26 00:50] VITALS: BP 145/76; PULSE 51; RESP 14; O2SAT 100
--- NOTE | 2023-04-26 01:10 | ED.RECABL ---
HPI - Recheck/Abnormal Lab/Rx General Chief Complaint: Recheck/Abnormal Lab/Rx Stated Complaint: low hr/high bp Time Seen by Provider: 04/25/23 21:32 Source: patient Limitations: no limitations History of Present Illness HPI narrative: Patient is a 63-year-old female presents to the emergency department complaining of her blood pressure being high. Patient states her blood pressure has been high over the past 3-4 days and states that prior to this she was in the 120s over 70s. Patient states that she checks her blood pressure according to the aha guidelines. Patient states that she saw her doctor on Thursday and was taken off carvedilol because she was done and she was had a low heart rate and she was also taken off of triamterene hydrochlorothiazide and put on losartan. Patient states that she has been running a blood pressure and saw that it is getting higher and so she called on Thursday in the total her to start taking nebivolol which she was prescribed and did start taking until tonight. Patient states she is currently taking nebivolol and losartan. Patient denies chest pain, difficulty breathing, hematuria, headache, vision changes, numbness, weakness, nausea, vomiting. Patient denies any other new or change medications. Related Data Home Medications Medication Instructions Recorded Confirmed multivitamin (Multiple Vitamins 1 tablet PO DAILY 04/14/22 04/14/23 tablet) pantoprazole 40 mg tablet,delayed 40 mg PO BID 04/14/22 04/14/23 release atorvastatin 40 mg tablet 40 mg PO DAILY 10/13/22 04/14/23 cholecalciferol (vitamin D3) 50 50 mcg PO DAILY 10/13/22 04/14/23 mcg (2,000 unit) capsule Allergies Allergy/AdvReac Type Severity Reaction Status Date / Time lactitol Allergy Mild Muscle Pain Verified 04/14/23 11:08 Penicillins Allergy Unknown HEADACHES Verified 04/14/23 11:07 Review of Systems Review of Systems: A 10 system review of systems was completed on the patient and is negative except for what is stated in the HPI. Nursing and ancillary documentation was reviewed. [facility] Past Medical History Medical History (Updated 04/26/23 @ 01:25 by Otoniel Dominguez DO) Hypertension Family History Family History Father Acute myocardial infarction, Onset Age: 56 Patient's father is Sibling Family history of coronary artery disease, Onset Age: 40 Patient's sister is Mother Patient's mother is Social History Social History (Updated 04/14/23 @ 11:03 by Génesis Joseph [facility] [address]) Smoking packs per day: 0.5 Smoking cigarettes per day: 10.0 Years smoked: 8 Smoking pack-years: 4.00 Smoking status: Never smoker Tobacco type: cigarettes Second hand tobacco smoke exposure: No Smoking end date: 03/09/89 Alcohol intake: never Substance use: never Do You Feel Safe in your Home?: Yes Lack of Transportation: No Lack of Food: Never True Current Housing: I Have Housing Concerned About Future Housing: No Difficulty Paying Gas/Electric Bills: No Difficulty Paying for Meds: No Currently Unemployed: No Education: Associate Degree Difficulty w/ Childcare or Family Care: No Gender identity (if verbalized by the patient): Female Sexual Orientation (if Verbalized by the Patient): Straight or Heterosexual Comments At time of signature, I have reviewed and agree with nursing past medical, surgical, social and family history unless otherwise noted. Please see the nursing chart for further information. There is no relevant family history pertinent to the presenting complaint. Exam Narrative: CONST: No acute distress. Well nourished. HENMT: Head is normocephalic and atraumatic. Moist mucous membranes. No posterior oropharynx erythema. EYES: No conjunctival icterus, injection, or pallor. PERRL. NECK: No meningeal signs. RESP: Able to speak in full sentenc
[2023-04-26 01:37] VITALS: BP 156/104; PULSE 52; RESP 19; TEMP 36.6; O2SAT 100
== END 2023-04-26 01:38 | disposition home or self-care (01) ==
PROVIDERS: Emergency Provider Student in an Organized Health Care Education/Training Program
DX: I10 Essential (primary) hypertension (principal); Z87.891 Personal history of nicotine dependence; R00.1 Bradycardia, unspecified; R94.31 Abnormal electrocardiogram [ECG] [EKG]; I44.0 Atrioventricular block, first degree
CPT/HCPCS: 36415; 80053; 81001; 83735; 84443; 84484; 85025; 93005; 99284

== ENCOUNTER 2023-05-05 08:56 | Outpatient (CLI) | payer OTHER, BC, SELFPAY ==
--- NOTE | ~2023-05-05 | NM_ITS ---
EXAMINATION: NM nia stress w perfusion DATE: 05/05/2023 12:20 INDICATION: Chest pain. TECHNIQUE: Rest images were obtained following intravenous administration of 9 mCi Tc99m tetrofosmin (Myoview). The patient was infused intravenously with Lexiscan (regadenoson). Then, 30.5 mCi Tc99m te trofosmin (Myoview) was administered intravenously, and stress images were obtained. Data was reconst ructed into short axis and horizontal and vertical long axis SPECT images. Gated SPECT images were al so obtained. COMPARISON: Myocardial perfusion imaging 05/31/2019 FINDINGS: There is no definite reversible or fixed perfusion abnormality to suggest ischemia or infar ction. There is no segmental wall motion abnormality. Left ventricular ejection fraction measures > 70%. IMPRESSION: 1. No definite ischemia or infarct. 2. Normal left ventricular ejection fraction measuring >70%. Reviewed, dictated and finalized at location A. [facility]
--- NOTE | 2023-05-05 10:11 | EST_ITS ---
Patient Info Name: Marilyn Cabrera Age: 63 years : 1960 Gender: Female Ht: 64 in Wt: 186 lbs BSA: 1.98 m2 HR: 75 bpm BP: 163 / 72 mmHg Heart Rhythm: Sinus Rhythm Exam Date: 05/05/2023 10:19 AM Exam Location: Echo Lab Patient Status: Outpatient Admit Date: 05/05/2023 Staff Ordering Physician: Adair Bourgeois DO Attending Provider: Adair Bourgeois DO Exercise Technologist: Kimmy Mckeon CT Exercise Physician: Adair Bourgeois DO Exam Type: CA stress nia w NM Study Info Indications R07.89 - Other chest pain A regadenoson stress test was performed. Summary 1. 1. Negative lexiscan stress test for ischemic ST changes by ECG criteria. 2. 2. Baseline hypertension. 3. 3. Nuclear scan to follow and will be reported separately. Please correlate with it. 4. 4. Patient informed of the above results. Protocol: Lexiscan Stress ECG Details Stage: REST Duration (min): 1 min : 8 sec HR (bpm): 63 SBP (mmHg): 148 DBP (mmHg): 77 Stage: REST Duration (min): 4 min : 48 sec HR (bpm): 70 SBP (mmHg): 148 DBP (mmHg): 77 Stage: STAGE 1 Duration (min): 0 min : 59 sec HR (bpm): 102 SBP (mmHg): 163 DBP (mmHg): 77 Stage: RECOVERY Duration (min): 1 min : 0 sec HR (bpm): 96 SBP (mmHg): 163 DBP (mmHg): 77 Stage: RECOVERY Duration (min): 2 min : 0 sec HR (bpm): 88 SBP (mmHg): 163 DBP (mmHg): 77 Stage: RECOVERY Duration (min): 3 min : 0 sec HR (bpm): 86 SBP (mmHg): 137 DBP (mmHg): 70 Stage: RECOVERY Duration (min): 3 min : 3 sec HR (bpm): 86 SBP (mmHg): 137 DBP (mmHg): 70 Rest HR: 70 bpm Peak HR: 102 bpm Rest Sys BP: 148 mmHg Peak Sys BP: 163 mmHg Max Pred HR: 155 bpm % Max Pred HR: 66 % Target HR: 132 bpm Max RPP: 16,626 bpm*mmHg Termination Reason: Completed protocol Cardiac Symptoms: Shortness of breath Total Time: 1 min : 0 sec Rest [place] BP: 77 mmHg Peak [place] BP: 77 mmHg Total Dose: 0.4 mg Resting ECG Sinus rhythm. Stress ECG No ST changes. Arrhythmias None. Report Signatures
== END 2023-05-05 08:57 | disposition home or self-care (01) ==
PROVIDERS: Visit Provider Internal Medicine Cardiovascular Disease
DX: R07.9 Chest pain, unspecified (principal); I10 Essential (primary) hypertension
CPT/HCPCS: 78452; 93017; A9502; J2785